=== PATIENT | female | born 1995 | race Caucasian/White ===

== ENCOUNTER → 2016-05-21 | Outpatient (CLI) | payer BC ==
[~2016-05-21] MED LIST: CYCL1DRO OP; LAMO25TA75 PO; ZPR40C PO
--- OUTSIDE RECORDS SUMMARY | 2016-05-21 15:02 | XMS REPORT | Continuity of Care Document ---
Author Author Interface Organization Interface Address Unknown Phone Unavailable Problems Problem Status Onset Date Classification Date Reported Comments Source No data available for this section Problem 02/06/2014 [facility] Medications Medication Details Route Status Patient Instructions Ordering Provider Order Date Source Allergies, Adverse Reactions, Alerts Substance Category Reaction Severity Reaction type Status Date Reported Comments Source cefdinir Assertion Drug allergy [place]. Sulfamethoxazole / Trimethoprim [facility]. Immunizations Immunization Date Given Site Status Last Updated Comments Source No data available for this section No data available for this section [facility]. Results Order Name Results Value Reference Range Date Interpretation Comments Source Vital Signs Vital Sign Value Date Comments Source Encounters Location Location Details Encounter Type Encounter Number Reason For Visit Attending Provider ADM Date DC Date Status Source [facility] [id number] Emergency [id number] [facility] 02/01/2014 02/01/2014 Active [place] [employer], [facility] Emergency [id number] [facility] 02/01/2014 02/03/2014 [place] [facility] Procedure Code Date Perfomer Comments Source No data available for this section [facility]
--- NOTE | 2016-05-21 15:13 | Diagnostic Imaging Report ---
INDICATION: Injury to left knee. AP, oblique, and lateral views of the left knee are obtained. FINDINGS: No fracture or acute bony abnormality is seen. There is no overt joint effusion. There is no joint space narrowing. IMPRESSION: Negative left knee. Dictated by: Dictated on workstation # [id number]
== END ==
LOC: RAD 14:58
PROVIDERS: ATTEND Nurse Practitioner Family
DX: M25.562 Pain in left knee (principal)
CPT/HCPCS: 73562

== ENCOUNTER 2016-07-20 19:00 | Emergency (ER) | payer BC ==
[~2016-07-20] VITALS: Ht 152.4 cm; Wt 49.9 kg
--- NOTE | 2016-07-20 19:06 | ED General ---
General Stated Complaint: ALLERGIC REACTION Source of Information: Patient Exam Limitations: No Limitations History of Present Illness Time Seen by Provider: 19:05 Initial Comments To ER per EMS from home with reports of a possible allergic reaction. She felt a lump in her throat. No itching or shortness of breath. She was given 50 mg of intramuscular Benadryl by EMS. She had a similar event 3 days ago. She was started on Geodon orally about a month ago and had a dosage increased about 2 weeks ago. Timing/Duration: 1-2 Days, Intermittent Severity: Moderate Associated Systoms: No Cough, No Fever/Chills Allergies and Home Medications Allergies Coded Allergies: cefdinir (Verified Allergy, Unknown, 07/20/16) sulfamethoxazole (Verified Allergy, Unknown, 07/20/16) trimethoprim (Verified Allergy, Unknown, 07/20/16) Home Medications Cyclosporine 1 Each Droperette, 1 EACH OP, (Reported) Lamotrigine 25 Mg Tablet, Unknown Dose PO, (Reported) Ziprasidone 40 Mg Cap, Unknown Dose PO, (Reported) Constitutional: see HPI EENTM: other (lump in throat) Respiratory: no symptoms reported Cardiovascular: no symptoms reported Genitourinary: no symptoms reported Skin: no symptoms reported Psychiatric/Neurological: No Symptoms Reported Physical Exam Vital Signs Vital Sign - Last 12Hours 07/20/16 19:15 Temp 97.9 Pulse 91 Resp 18 B/P (MAP) 128/94 Pulse Ox 100 O2 Delivery Room Air Capillary Refill : General Appearance: No Apparent Distress, WD/WN, Anxious Eyes: Bilateral Eye EOMI, Bilateral Eye Normal Inspection, Bilateral Eye PERRL HEENT: PERRL/EOMI, TMs Normal Respiratory: No Accessory Muscle Use, No Respiratory Distress Cardiovascular: Regular Rate, Rhythm, Normal Peripheral Pulses Gastrointestinal: Normal Bowel Sounds, Non Tender, Soft Neurologic/Psychiatric: Alert, Oriented x3, No Motor/Sensory Deficits Skin: Normal Color, Warm/Dry Progress/Results/Core Measures Results/Orders Lab Results Laboratory Tests Test 07/20/16 19:10 Range/Units White Blood Count 9.2 4.3-11.0 10^3/uL Red Blood Count 4.56 4.35-5.85 10^6/uL Hemoglobin 13.4 11.5-16.0 G/DL Hematocrit 41 35-52 % Mean Corpuscular Volume 89 80-99 FL Mean Corpuscular Hemoglobin 29 25-34 PG Mean Corpuscular Hemoglobin Concent 33 32-36 G/DL Red Cell Distribution Width 12.5 10.0-14.5 % Platelet Count 274 130-400 10^3/uL Mean Platelet Volume 10.0 7.4-10.4 FL Neutrophils (%) (Auto) 61 42-75 % Lymphocytes (%) (Auto) 32 12-44 % Monocytes (%) (Auto) 7 0-12 % Eosinophils (%) (Auto) 1 0-10 % Basophils (%) (Auto) 0 0-10 % Neutrophils # (Auto) 5.6 1.8-7.8 X 10^3 Lymphocytes # (Auto) 2.9 1.0-4.0 X 10^3 Monocytes # (Auto) 0.6 0.0-1.0 X 10^3 Eosinophils # (Auto) 0.1 0.0-0.3 10^3/uL Basophils # (Auto) 0.0 0.0-0.1 10^3/uL Sodium Level 138 135-145 MMOL/L Potassium Level 3.7 3.6-5.0 MMOL/L Chloride Level 102 98-107 MMOL/L Carbon Dioxide Level 23 21-32 MMOL/L Anion Gap 13 5-14 MMOL/L Blood Urea Nitrogen 10 7-18 MG/DL Creatinine 0.85 0.60-1.30 MG/DL Estimat Glomerular Filtration Rate > 60 BUN/Creatinine Ratio 12 Glucose Level 81 70-105 MG/DL Calcium Level 10.1 8.5-10.1 MG/DL Total Bilirubin 0.3 0.1-1.0 MG/DL Aspartate Amino Transf (AST/SGOT) 20 5-34 U/L Alanine Aminotransferase (ALT/SGPT) 13 0-55 U/L Alkaline Phosphatase 82 40-136 U/L Total Protein 7.9 6.4-8.2 G/DL Albumin 5.2 H 3.2-4.5 G/DL My Orders Orders - ALINE DELACRUZ APRN Cbc With Automated Diff (07/20/16 19:05) Comprehensive Metabolic Panel (07/20/16 19:05) Saline Lock/Iv-Start (07/20/16 19:55) Vital Signs/I&O Vital Sign - Last 12Hours 5/1/17 19:15 Temp 97.9 Pulse 91 Resp 18 B/P (MAP) 128/94 Pulse Ox 100 O2 Delivery Room Air Departure Communication Progress Notes 2000-Patient states that her throat discomfort is gone and she feels back to normal. Heart rate 90, blood pressure 124/86, oxygen saturation 100 percent on room air. No tachypnea or dyspnea. Patient to discuss her symptoms with her mental health provider who prescribes the Geodon advised her to reduce her dose from 40 mg twice a day to 40 mg once a day. Still no rash or wheezing. This is likely an adverse effect/extrapyramidal effect Impression Impression: Primary Impression: Medication adverse effect Disposition: HOME, SELF-CARE Condition: Stable Departure-Patient Inst. Decision time for Depature: 20:02 Referrals: NO,LOCAL PHYSICIAN (PCP/Family) Primary Care Physician Patient Instructions: MEDICATION REACTION Add. Discharge Instructions: 1. Return to ER for any shortness of breath, itching, recurrent difficulty breathing or other concerns 2. Follow-up with her regular doctor later this week if you've any concerning symptoms as well. ALINE DELACRUZ APRN July 20, 2016 19:06
[2016-07-20] MEDS ORDERED: LAMO25TA75 PO (19:15)
[2016-07-20] MEDS ORDERED: ZPR40C PO (19:15)
[2016-07-20] MEDS ORDERED: CYCL1DRO OP (19:15)
[2016-07-20 19:27] LABS: BASOPHILS % (AUTO) 0 % (0-10); EOSINOPHILS # (AUTO) 0.1 10^3/uL (0.0-0.3); EOSINOPHILS % (AUTO) 1 % (0-10); LYMPHOCYTES # (AUTO) 2.9 X 10^3 (1.0-4.0); LYMPHOCYTES % (AUTO) 32 % (12-44); MEAN CORPUSCULAR HEMOGLOBIN 29 PG (25-34); MEAN CORPUSCULAR HGB CONC 33 G/DL (32-36); MEAN CORPUSCULAR VOLUME 89 FL (80-99); MONOCYTES # (AUTO) 0.6 X 10^3 (0.0-1.0); MONOCYTES % (AUTO) 7 % (0-12); NEUTROPHILS # (AUTO) 5.6 X 10^3 (1.8-7.8); NEUTROPHILS % (AUTO) 61 % (42-75); PLATELET COUNT 274 10^3/uL (130-400); RED BLOOD COUNT 4.56 10^6/uL (4.35-5.85); RED CELL DISTRIBUTION WIDTH 12.5 % (10.0-14.5); WHITE BLOOD COUNT 9.2 10^3/uL (4.3-11.0)
[2016-07-20 19:47] LABS: ALANINE AMINOTRANSFERASE 13 U/L (0-55); ALBUMIN 5.2 G/DL (3.2-4.5); ANION GAP 13 MMOL/L (5-14); ASPARTATE AMINO TRANSFERASE 20 U/L (5-34); BILIRUBIN,TOTAL 0.3 MG/DL (0.1-1.0); BLOOD UREA NITROGEN 10 MG/DL (7-18); BUN/CREATININE RATIO 12; CALCIUM 10.1 MG/DL (8.5-10.1); CARBON DIOXIDE 23 MMOL/L (21-32); CHLORIDE 102 MMOL/L (98-107); CREATININE SERUM 0.85 MG/DL (0.60-1.30); GFR ESTIMATED > 60; GLUCOSE 81 MG/DL (70-105); POTASSIUM 3.7 MMOL/L (3.6-5.0); SODIUM 138 MMOL/L (135-145); TOTAL PROTEIN 7.9 G/DL (6.4-8.2)
[2016-07-20 20:11] VITALS: BP 121/84
== END 2016-07-20 20:11 | disposition home or self-care (01) ==
LOC: EDUNIT# 19:00 → ER 19:01
DX: R22.0 Localized swelling, mass and lump, head (principal); T43.505A Adverse effect of unspecified antipsychotics and neuroleptics, initial encounter; Z79.899 Other long term (current) drug therapy
CPT/HCPCS: 36415; 80053; 85025